=== PATIENT | female | born 1960 | race Caucasian/White ===

== ENCOUNTER 2020-08-02 07:36 | Outpatient (CLI) | payer OTHER, SELFPAY ==
--- NOTE | ~2020-08-02 | US_ITS ---
EXAMINATION: US right upper quadrant DATE: 08/02/2020 08:27 INDICATION: Right upper quadrant pain, history of cholelithiasis TECHNIQUE: Multiple grayscale and Doppler ultrasound images of the abdomen were obtained. COMPARISON: 08/08/2017 FINDINGS: The head and body of the pancreas are normal. The pancreatic tail is obscured by bowel gas. The liver is normal with normal echogenicity and echotexture. No surface nodularity. Normal hepatope andria flow in the main portal vein. Stones are present in the nondistended gallbladder. There is no gal lbladder wall thickening or pericholecystic fluid. The normal common bile duct measures 6 mm. There w as no sonographic Cohen sign. IMPRESSION: 1. Cholelithiasis without additional findings of cholecystitis. Reviewed, dictated and finalized at location A. ERTING OPERATOR
== END 2020-08-02 07:37 | disposition home or self-care (01) ==
PROVIDERS: PCP Physician Assistant; Visit Provider Physician Assistant
DX: K80.20 Calculus of gallbladder without cholecystitis without obstruction (principal)
CPT/HCPCS: 76705

== ENCOUNTER 2020-08-08 00:14 | Outpatient (CLI) | payer OTHER, SELFPAY ==
[2020-08-08 19:47] LABS: SARS-CoV-2 RNA PCR Negative
== END 2020-08-08 00:15 | disposition home or self-care (01) ==
LOC: ANHCOVIDDT 00:15
PROVIDERS: PCP Physician Assistant; Visit Provider Surgery
DX: Z01.818 Encounter for other preprocedural examination (principal); Z20.828 Contact with and (suspected) exposure to other viral communicable diseases
CPT/HCPCS: 87635; C9803; U0003

== ENCOUNTER 2020-08-08 09:24 | Outpatient (CLI) | payer OTHER, SELFPAY ==
--- NOTE | 2020-08-08 09:26 | ECG_ITS ---
Measurements Intervals [place] Rate: 72 P: 23 IA: 196 QRS: 15 QRSD: 97 T: 41 QT: 368 QTc: 403 Interpretive Statements SINUS RHYTHM BORDERLINE R WAVE PROGRESSION, ANTERIOR LEADS BASELINE ARTIFACT- I, II, AVR, AVL BORDERLINE ECG Electronically Signed On 08-08-2020 10:12:05 [employer] NUTRITION TERRITORY MANAGER by Yosef Yarbrough D.O.
[2020-08-08 09:58] LABS: Alanine Aminotransferase 167 U/L (4-35); Albumin Level 4.4 g/dL (3.5-5.1); Alkaline Phosphatase 200 U/L (38-126); Amylase 89 U/L (30-110); Aspartate Amino Transferase 39 U/L (14-36); Bilirubin,Total 0.7 mg/dL (0.2-1.3); Lipase 71 U/L (23-300)
== END 2020-08-08 09:25 | disposition home or self-care (01) ==
LOC: ANHSURGERY 09:26
PROVIDERS: PCP Physician Assistant; Visit Provider Surgery
DX: K80.20 Calculus of gallbladder without cholecystitis without obstruction (principal); Z01.818 Encounter for other preprocedural examination; R94.31 Abnormal electrocardiogram [ECG] [EKG]
CPT/HCPCS: 36415; 80076; 82150; 83690; 86850; 86900; 86901; 93005

== ENCOUNTER 2020-08-11 01:29 | Day surgery (SDC) | payer OTHER, SELFPAY ==
[2020-08-03 14:39] VITALS: BMI 35.4
[2020-08-11] VITALS (8 sets, daily range): BP systolic 104–133; BP diastolic 58–83; PULSE 53–79; RESP 10–20; TEMP 36.2–36.6; O2SAT 98–100
--- NOTE | ~2020-08-11 | XR_ITS ---
EXAMINATION: XR cholangiogram surg 1st inj DATE: 08/11/2020 08:43 INDICATION: Cholelithiasis. TECHNIQUE: 201 fluoroscopic images of the right upper quadrant were obtained during intraoperative ch olangiography performed by the surgeon. I was not present in the operating room. Fluoroscopy exposure time was 31 seconds. COMPARISON: Abdomen ultrasound 08/18 FINDINGS: There is a catheter in the cystic duct. The common duct is dilated. Contrast passes to the duodenum. No choledocholithiasis. IMPRESSION: 1. No choledocholithiasis. Reviewed, dictated and finalized at location B. TRUCK TECHNICIAN IMPRESSION: 1. No choledocholithiasis.
--- NOTE | 2020-08-11 06:48 | WPDHPUPDATE1 ---
History and Physical Update Update Date/Time: 08/11/20 06:48 History and Physical has been reviewed, including an updated exam of the patient. There are NO changes in the patient's condition. Risks, benefits, and alternatives have been discussed and questions answered. Patient agrees to proceed with procedure.
--- NOTE | 2020-08-11 06:48 | WPDANESEPPF ---
Anes - Initial Pre Proc Eval Procedure: Operation Date: 08/11/20 07:30 Proposed Procedures p Laparoscopic Cholecystectomy with Intraoperative Cholangiogram - Peterson Gates MD Date/Time: 08/11/20 06:48 Surgeon: Peterson Gates MD Pre Op Diagnosis: Chronic Cholecystitis With Stones Patient Data Age: 60 Gender: F Height: 5 ft 9.5 in Weight: 110.22 kg Allergies Allergy/AdvReac Type Severity Reaction Status Date / Time Tetanus Vaccines and Toxoid Allergy Unknown Swelling Verified 08/03/20 14:39 ibuprofen AdvReac Unknown Other Verified 08/03/20 14:39 Home Medications Medication Instructions Recorded Confirmed Type pregabalin 75 mg capsule 75 mg PO BID #180 cap 05/12/20 08/03/20 Rx magnesium 250 mg tablet 250 mg PO BID 06/23/20 08/03/20 History melatonin 5 mg tablet 5 mg PO HS tablet 06/23/20 08/03/20 History riboflavin (vitamin B2) 100 mg 200 mg PO BID 06/23/20 08/03/20 History tablet ascorbic acid-vitamin E-biotin 1 tablet PO DAILY 08/03/20 08/03/20 History [Hair, Skin, Nails with Biotin] ondansetron HCl 4 - 8 mg PO Q8H PRN 08/03/20 08/03/20 History tramadol 50 mg PO BID 08/03/20 08/03/20 History vit C-E-zinc hh-gfjn-ayn-zeax 1 cap PO BID 08/03/20 08/03/20 History [ICaps AREDS2] Patient hx anesthesia problems: none Family hx anesthesia problems: none PMFSH Past Medical History Medical History Arthritis Asthma Bruises easily Hx gestational diabetes Hypertension SOB (shortness of breath) Surgical History Surgical History H/O dilation and curettage History of appendectomy History of partial hysterectomy Hx of total cystectomy Family History Family History Mother Family history of thyroid disease Diabetes mellitus Family history of osteoporosis Family history of cardiovascular disease Sibling Family history of development disorder Patient's sister is in good health Patient's brother is in good health Father Cancer Social History Social History Smoking packs per day: 1 Smoking cigarettes per day: 20.0 Years smoked: 16 Smoking pack-years: 16.00 Smoking status: Former smoker Tobacco type: cigarettes Second hand tobacco smoke exposure: No Smoking end date: 03/29/85 Additional smoking assessment comments: QUIT AGE 26 Alcohol intake: never Substance use: unknown Gender identity (if verbalized by the patient): Female Spiritual care concerns: No Anes - Eval Final PreProcedure Day of Procedure 08/11/20 06:48 Patient weight: obese Heart: regular rate and rhythm Lungs: decreased breath sounds Airway: Mallampati scale class II Neurological: alert and oriented Last oral intake: >/= 8 hours ASA classification: III Emergent: no Anesthetic plan: proceed Anesthesia type and monitoring: general ETT and standard monitoring Informed Consent: The patient's anesthetic plan and its attendant risks and benefits were discussed with the patient/family/POA. Questions were solicited and answers provided to the satisfaction of the patient/family/POA.
[2020-08-11] MEDS: LACTATED RINGERS 1,000 ML 30 ML IV CONT ×2 (07:09→09:13)
[2020-08-11] MEDS: ACETAMINOPHEN 500 MG TABLET 1000 MG PO (07:09)
[2020-08-11] MEDS: KETOROLAC 15 MG/ML VIAL (*BKC) IV PUSH (07:09)
--- NOTE | 2020-08-11 07:23 | PM.PROC ---
Procedure Note - Detailed Date of procedure: 08/11/20 Pre-op diagnosis: Chronic Cholecystitis With Stones Chronic cholecystitis, cholelithiasis; abnormal LFTs Post-op diagnosis: same Procedure performed: Laparoscopic cholecystectomy with intraoperative cholangiogram. Description of procedure: The patient was taken to surgery and induced into general anesthesia. The abdomen was prepped and draped. Trocars were placed in the usual fashion using 0.5% Marcaine with epinephrine and applied Medical optical trocars. A 5 millimeter camera was used. The gallbladder was decompressed with a laparoscopic aspirator. The cholecystotomy was closed with a Vicryl endo-loop. The gallbladder was full of gallstones and there was very little bile within it. The gallbladder was then retracted anterosuperiorly. We exposed the cholecystohepatic triangle and dissected out the cystic duct and cystic artery. There was a lot of inflammation in the cholecysto hepatic triangle. The cystic duct was dilated. The gallbladder was dissected off the liver at its lower 3rd. Critical view was achieved. The cystic artery was securely clipped and divided. Cystic duct was dissected through most of its length. The cystic duct was clipped at the distal gallbladder. A small incision was made in the upper cystic duct with cystic duct scissors. On checking the more distal cystic duct, there was evidence of a stone not far from its junction with the common bile duct. I tried to milk the stone retrograde but was unable to do so. I then made a 2nd cystic duct incision right at the upper aspect of the stone. I was then able to extricate the scope dome from the cystic duct. Through this opening the cholangiogram catheter was passed into the cystic duct. We then brought the C-arm fluoroscopy into the field. Intraoperative cholangiograms were done with C-arm fluoroscopy. This showed a normal cholangiogram with no evidence of common bile duct filling defects. There was prompt duodenal filling and no evidence of common bile duct injury. The cholangiogram catheter was removed from the cystic duct. The cystic duct was then ligated with a Vicryl endo-loop. The gallbladder was then dissected free of its peritoneal attachments to the liver. There was quite a bit of inflammation and this was a slow process. The gallbladder was partially intrahepatic and its upper 3rd. One additional entry into the gallbladder was made in this upper 3rd of the gallbladder but minimal leakage of bile occurred. Eventually the gallbladder was freed completely from the liver. Once freed, it was placed in an Endo-Catch bag and retrieved through the 10 11 epigastric trocar. The epigastric trocar site had to be enlarged both bluntly and sharply to accommodate the inflamed gallbladder full of stones. Once the gallbladder was removed, the epigastric trocar was then replaced. A towel clip was used to occlude the skin around the epigastric trocar so that we could reinsufflated. We reviewed the right upper quadrant and gallbladder fossa. It was irrigated and suctioned. Cautery was used for hemostasis. All looked good with no evidence of bleeding or bile leakage. We then evacuated CO2 and removed the trocar sleeves. The fascia at the epigastric trocar site was closed with [id number] mattress sutures of 0 Vicryl. The subcutaneous was closed with interrupted 3 0 Vicryl. All skin wounds were closed with subcuticular 4 O Monocryl skin suture. The wounds were dressed with Exofin surgical adhesive. The patient transferred to recovery in good condition. Sponge and needle counts were correct x2. Anesthesia: GETA and local (0.5% Marcaine with epinephrine) Surgeon: Peterson Gates MD Tone Regulator: Mary Jensen OVERLOCK ELASTIC ATTACHER OVERLOCK ELASTIC ATTACHER Estimated blood loss (mL): 10 Drains: No Packing: No Pathology: yes (Gallbladder) Complications: None Condition: stable Disposition: PACU Findings: Severe chronic inflammation was noted. The ga
[2020-08-11] MEDS: ceFAZolin 2 GM/D5W 50 ML 2 GM/50 ML BAG IVPB (07:26)
[2020-08-11] MEDS: ONDANSETRON INJ 4 MG/2 ML VIAL IV PUSH (09:21)
[2020-08-11] MEDS: oxyCODONE HCL (*CRX) 5 MG TAB IR PO (10:10)
== END 2020-08-11 10:53 | disposition home or self-care (01) ==
PROVIDERS: PCP Physician Assistant; Visit Provider Surgery
PROC: 0FT44ZZ Resection of Gallbladder, Percutaneous Endoscopic Approach (ICD-10-PCS; CPT 47562; principal; 2020-08-11 07:30)
DX: K80.10 Calculus of gallbladder with chronic cholecystitis without obstruction (principal); Z87.891 Personal history of nicotine dependence; E66.9 Obesity, unspecified; Z68.34 Body mass index [BMI] 34.0-34.9, adult
CPT/HCPCS: 47563; 74300; 88304; A9270; C1713; J0330; J0690; J1100; J1885; J2250; J2405; J2704; J3010; J7120; Q9966

== ENCOUNTER 2020-08-21 07:53 | Outpatient (CLI) | payer OTHER, SELFPAY ==
--- NOTE | ~2020-08-21 | MM_ITS ---
EXAMINATION: MM screening ketan BI w naveed HISTORY: Screening mammogram TECHNIQUE: Craniocaudal and mediolateral oblique 3-D tomosynthesis images were obtained and synthetic 2-D images were generated. CAD analysis was submitted and interpreted. COMPARISON: No prior mammogram is available for comparison at this institution. BREAST PARENCHYMAL COMPOSITION: There are scattered areas of fibroglandular density. FINDINGS: There is no evidence of suspicious mass, calcification, or architectural distortion to sugg est malignancy in either breast. There has been no suspicious interval change. IMPRESSION: 1. No mammographic evidence of malignancy. 2. Recommend routine screening mammography in one year. BI-RADS Category 1: Negative Reviewed, dictated and finalized at location A. CE SUPPORT CLERK
== END 2020-08-21 07:54 | disposition home or self-care (01) ==
LOC: ANHIMG 07:55
PROVIDERS: PCP Physician Assistant; Visit Provider Physician Assistant
DX: Z12.39 Encounter for other screening for malignant neoplasm of breast (principal)
CPT/HCPCS: 77063; 77067

== ENCOUNTER 2024-12-10 09:33 | Emergency (ER) | payer OTHER, SELFPAY ==
[2024-12-10 09:39] VITALS: PULSE 81; RESP 16; TEMP 36.4; O2SAT 97
--- NOTE | 2024-12-10 09:46 | ED.GENADULT ---
HPI - General Adult General Stated complaint: High Blood pressure Time Seen by Provider: 12/10/24 10:09 Mode of arrival: ambulatory Limitations: no limitations History of Present Illness HPI narrative: 64-year-old female presents with concern for high blood pressure. Reports she has had a headache for 2 weeks. She took her blood pressure at home and it was 197/103 last night and this morning was 223/107. She used an automatic at home blood pressure cuff. She reports she recently started on a new antidepressant. She denies weakness in any extremity, thunderclap headache, difficulty speaking or swelling.. complaint: High blood pressure Related Data Home Medications ?Medication ?Instructions ?Recorded ?Confirmed ?Last Taken ?Type magnesium 250 mg tablet 250 mg PO BID 06/23/20 11/01/20 Unknown History melatonin 5 mg tablet 5 mg PO HS 06/23/20 11/01/20 Unknown History riboflavin (vitamin B2) 100 mg 200 mg PO BID 06/23/20 11/01/20 Unknown History tablet ascorbic acid 7.5 mg-vit E 7.5 1 tablet PO DAILY 08/03/20 08/22/20 Unknown History unit-biotin 1,250 mcg chewable tablet (Hair,Skin,Nails with Biotin) vit C 250 mg-vit E 200 unit-zinc 1 cap PO BID 08/03/20 11/01/20 Unknown History ox 12.5 ce-qozmqk-nojpqp-zeax capsule (ICaps AREDS2) saw palmetto 160 mg capsule 160 mg PO BID 10/31/20 11/01/20 Unknown History vilazodone 10 mg tablet mg 12/10/24 Unknown History Allergies Allergy/AdvReac Type Severity Reaction Status Date / Time Tetanus Vaccines and Toxoid Allergy Unknown Swelling Verified 12/10/24 10:08 ibuprofen AdvReac Unknown Other Verified 12/10/24 10:08 Review of Systems Review of Systems: CONSTITUTIONAL: Denies malaise, chills, sweats, or fever. EYES: Denies visual changes CARDIOVASCULAR: Denies chest pain, palpitations, or edema. RESPIRATORY: Denies cough or dyspnea. NEUROLOGIC: Denies numbness, weakness. Reports headache. All systems reviewed & are unremarkable except as noted in HPI and below PMFSH Past Medical History Medical History Arthritis Asthma Bruises easily Hx gestational diabetes Hypertension SOB (shortness of breath) Surgical History Surgical History H/O dilation and curettage History of appendectomy History of partial hysterectomy Hx laparoscopic cholecystectomy Hx of total cystectomy Family History Family History Mother Family history of thyroid disease Diabetes mellitus Family history of osteoporosis Family history of cardiovascular disease Sibling Family history of development disorder Patient's sister is in good health Patient's brother is in good health Father Cancer Social History Social History Smoking packs per day: 1 Smoking cigarettes per day: 20.0 Years smoked: 16 Smoking pack-years: 16.00 Smoking status: Former smoker Tobacco type: cigarettes Second hand tobacco smoke exposure: No Smoking end date: 03/29/85 Additional smoking assessment comments: QUIT AGE 26 Alcohol intake: never Substance use: unknown Living arrangements: with family Occupation/Education: retired Gender identity (if verbalized by the patient): Female Spiritual care concerns: No Comments At time of signature, agree with nursing past medical, surgical, social and family history. There is no relevant family history pertinent to the presenting complaint Exam Narrative: GENERAL: Well-appearing, well-nourished, and in no acute distress. HEAD: Normocephalic, atraumatic. EYES: PERRLA, sclera clear, and EOMI. No nystagmus. ENT: Nares clear, turbinates pink, no rhinorrhea or epistaxis. Mucous membranes moist. TM pearly bhagat with sharp light reflex bilaterally; no tragal tenderness. Oropharynx without erythema or lesions. Tonsils not enlarged and without exudate. NECK: Supple. CHEST: No respiratory distress. Clear to auscultation. No bony deformities, no asymmetry. Speaks in full sentences. HEART: Regular rate and rhythm. No murmur heard. Normal peripheral pulses. EXTREMITIES: Normal range of motion. No edema. Normal strength and sensation. SKIN: Warm, dry, no visible rash. NEURO: Alert and oriented x3. No focal deficits. Cranial nerves II through XII grossly intact PSYCH: Normal mood and affect Course Course Emergency Course: I discussed limitations of evaluation at the urgent care. Offered transfer to emergency room for further evaluation which patient refused. She reports she will follow-up with her primary doctor. Patient is aware of diagnosis, understands and agrees to treatment plan. Anticipatory guidance given. Patient agrees to follow-up as directed and is aware of reasons to seek care at the emergency department. Portions of this record may have been created with voice recognition software Level of Care: Express Care Visit Vital Signs Vital signs: Vital Signs Temperature 97.6 F 12/10/24 09:39 Pulse Rate 81 12/10/24 09:39 Respiratory Rate 16 12/10/24 09:39 Pulse Oximetry 97 12/10/24 09:39 Oxygen Delivery Room Air 12/10/24 09:39 Temperature 97.6 F 12/10/24 09:39 Pulse Rate 81 12/10/24 09:39 Respiratory Rate 16 12/10/24 09:39 Pulse Oximetry 97 12/10/24 09:39 Oxygen Delivery Room Air 12/10/24 09:39 Reviewed. Medical Decision Making MDM Narrative Medical decision making narrative: The patient was evaluated by myself in the emergency department. History is obtained from patient who is an independent historian and physical exam was performed.? Available medical records were reviewed at this time. ? Exam findings show no acute concerns or changes; patient is non-toxic appearing and is in no distress. Patient is appropriate for outpatient treatment and follow-up. ? I have evaluated and discussed social determinants of health with the patient that could potentially impact subsequent diagnosis and treatment plans. ? Differential diagnosis and treatment plan were discussed with the patient. Patient agrees with discussion and after shared medical decision making agrees with plan of care. All questions were answered to the patient's satisfaction. Vital Signs Vital Signs: Vital Signs Temperature 97.6 F 12/10/24 09:39 Pulse Rate 81 12/10/24 09:39 Respiratory Rate 16 12/10/24 09:39 Pulse Oximetry 97 12/10/24 09:39 Oxygen Delivery Room Air 12/10/24 09:39 Temperature 97.6 F 12/10/24 09:39 Pulse Rate 81 12/10/24 09:39 Respiratory Rate 16 12/10/24 09:39 Pulse Oximetry 97 12/10/24 09:39 Oxygen Delivery Room Air 12/10/24 09:39 Critical Care Time Critical Care Time Critical Care Time: No Discharge Plan Discharge Clinical Impression: Hypertension Qualifiers: Hypertension type: essential hypertension Qualified Code(s): I10 - Essential (primary) hypertension Patient Disposition: Home, Self-Care Condition: Stable Instructions: Hypertension (ED) Additional Instructions: Your blood pressure today at urgent care was 160/102 & 162/104 Pulse 81 Respirations 16 Temperature 97.6? Oxygen saturation 97 Your physical exam today does not show any urgent concerns. Please follow-up with your primary care doctor - call for appointment. If you have any worsening of symptoms or any other urgent concerns please go to the ER. Please continue taking your home medications as usual. Please read and follow information included in discharge instructions. Patient Language: Greenlandic Prescriptions: No Action riboflavin (vitamin B2) 100 mg tablet 200 mg PO BID magnesium 250 mg tablet 250 mg PO BID melatonin 5 mg tablet 5 mg PO HS saw palmetto 160 mg capsule 160 mg PO BID Rx Instructions: give with meal/snack Hair, Skin, Nails with Biotin 7.5-7.5-1,250 mg-unit-mcg Tablet,Chewable 1 tablet PO DAILY ICaps AREDS2 250 mg-200 unit -12.5 mg-1 mg Capsule 1 cap PO BID tramadol 50 mg tablet 50 mg PO BID PRN (Reason: pain) Qty: 90 0RF Rx Instructions: must last 90 days pregabalin 75 mg capsule 75 mg PO BID Qty: 180 0RF Follow-up/Referrals: Harms,Hao Becerril M.D. [Primary Care Provider] - Stand Alone Forms: Work/School Release IP Time of Disposition: 10:27
[2024-12-10 10:07] VITALS: BP 160/102
--- OUTSIDE RECORDS SUMMARY | 2024-12-10 10:07 | XMS_ITS | CONTINUITY OF CARE DOCUMENT ---
Author Name ana perez Address Unknown Organization [facility] Address [address] [address] [facility] [address] [facility] [address] [place] [address] Phone [phone] Care Team Providers Care Director Of Curriculum And Instruction Name Role Phone ana perez Unavailable Unavailable
--- OUTSIDE RECORDS SUMMARY | 2024-12-10 10:08 | XMS_ITS | Encounter Summary ---
Author Organization [facility] Healthcare Address [address] [place] [id number] Care Team Providers Care Hot Car Charger Name Role Phone Hao Schneider MD Primary Care Provider [phone] Reason for Visit * Reason Onset Date Comments Hypertension 12/10/2024 Encounter Details Date Type Department Care Team (Late st Contact Info) Description 12/10/2024 Nurse Triage [facility] [address] [place] [address] Meeta Romeo RN Social History Tobacco Use Types Packs/Day Years Used Date Smoking Tobacco: Former Cigarettes 0.3 15 0 1970 - 1985 Smokeless Tobacco: Never Alcohol Use Standard Drinks/Week Comments No 0 (1 standard drink = 0.6 oz pur e alcohol) PHQ-2 Answer Date Recorded PHQ-2 Total Score (If total score is 3 or more points, staff should administer the PHQ-9) 6 01/27/2024 PHQ-9 Answer Date Recorded PHQ-9 Total Score 21 01/27/2024 Personal Safety Answer Date Recorded Have you ever been in or are you currently in a harmful physical or emotional relationship or is someone making you feel afraid or unsafe? 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 Noticing higher BP over the last 3 weeks, was getting readings atpsychiatrist. Yesterday on forearm 200 systolic. Has been having headaches for last few weeks. Lastnight on home machine (arm cuff) BP 197/103. Denies chest pain, SOB, vision changes, severe headaches. Now on phone, BP at home 204/123 HR 74. Pt is not on BP medications. RN gave care advice and advised UC now as no open OV. To call if worsens or needs f/u. Reason for Disposition Systolic BP >= 200 OR Diastolic >= 120 and having NO cardiac or neurologic symptoms Protocols used: Blood Pressure - [id number] * Telephone Encounter - Sandy Mantilla RN - 12/10/2024 8:59 AM CDT Regarding: elevated blood pressure (197/103) ----- Message from Nancy Chen sent at 12/10/2024 8:59 AM CDT ----- Symptom Based Call Chief Complaint(s): elevated blood pressure (197/103) Duration: this morning What type of symptom(s) is the patient experiencing? Red Flag. Is the patient concerned they are experiencing a medical emergency requiring an ambulance? No Additional Comments: pt calling stating that she has elevated blood pressure this morning. Her homemachine read 197/103. She states that she has gained a lot of weight recently. She states that she is having headaches. She states that she is having some head fogginess that has been going on. No facial numbness or drooping. She has been feeling fatigued and sluggish. Does message need to be routed? Yes-Action Needed documented in this encounter Plan of Treatment Not on file documented as of this encounter Visit Diagnoses Not on filedocumented in this encounter Care Teams Hot Car Charger Relationship Specialty Start Date End [place] [id number] PCP - General Family Medicine 11/19/21 documented as of this encounter
--- OUTSIDE RECORDS SUMMARY | 2024-12-10 10:08 | XMS_ITS | Referral Summary ---
Author Organization [facility] [place] [address] Address [address] [place] [address] Phone Care Team Providers Care Meat Cutting Block Repairer Name Role Phone Hao Schneider MD Primary Care Provider [phone] Encounters Date Type Department Care Team Description 12/10/2024 Nurse Triage [facility] [address] [address] Meeta Romeo, JUNIOR 12/02/2024 Telephone [facility] [address] [address] Yoel Tomlinson, WELDER GAS AUTOMATIC 10/12/2024 Telephone [facility] [address] [address] Hao Schneider MD Medical Question/Miscellaneous from Last 3 Months Allergies Active Allergy Reactions Criticality Noted Date Comments Milk Unknown 12/12/2021 Medications magnesium oxide (MAG-OX) 415 mg (250 mg elemental) tablet 5 Active melatonin 5 mg tablet 0 Active riboflavin (Vitamin B-2) 100 mg tablet 5 Active vit C,M-Uo-msspa-l utein-zeaxan (PreserVision AREDS-2) 250-90-40-1 mg capsule 8 Active polyethylene glycol (MIRALAX) 17 gram packetIndicati ons:constipati on Take 1 packet (17 g total) by mouth daily Active benzonatate (TESSALON) 100 mg capsuleIndicat ions:Cough Take 1 capsule (100 mg total) by mouth 3 (three) times a day as needed for cough 42 capsule 3 Active valACYclovir (VALTREX) 1 gram tablet Take 2 tabs (2000 mg) 2 times a days for 1 day. 4 tablet 5 4 Active albuterol HFA (PROVENTIL HFA,VENTOLIN HFA,PROAIR HFA) 90 mcg/actuation inhaler Inhale 2 puffs every 6 (six) hours as needed for wheezing 3 each 4 4 025 Active guaiFENesin-co deine (GUAITUSS AC) liquid 100-10 mg/5 mL Take 5-10 mL by mouth every 4 (four) hours as needed for cough 120 mL 4 Active vitamin B complex capsule Take 1 capsule by mouth daily Active ascorbic acid (vitamin C) 1,000 mg tablet Take 1 tablet (1,000 mg total) by mouth daily Active sulfamethoxazo le-trimethopri m (BACTRIM DS) 800-160 mg per tablet 4 Active pregabalin (LYRICA) 50 mg capsule TAKE 1 CAPSULE BY MOUTH 2 TIMES A DAY. 180 capsule 5 Active pregabalin (LYRICA) 50 mg capsule Take 1 capsule (50 mg total) by mouth 2 (two) times a day 180 capsule 4 025 Discontinued Active Problems Problem Noted Date Diagnosed Date Annual physical exam 01/27/2024 Assessment & Plan (01/27/2024 11:44 AM CDT): In regard to health maintenance, Colonoscopy declines colon cancer screen. Aware of risks. WWE hyst Shingrix vaccine declines ASCVD risk: 3.7% Eat a healthy diet: focus on lean meats and proteins, more fruits, vegetables and whole grains and low in sugars and fats. Limit red meat and avoid processed meat. Maintain a healthy weight; avoid being overweight. Aim for a normal body mass index (BMI) of 18.5-24.9. Help learning to eat healthier, we can set up appointment with no bake molder/television cable installer. Have an active lifestyle, strive for 30 minutes of moderate exercise 5 times a week and strength or resistance training at least twice a week. Use broad-spectrum (UVA+UVB) sunscreen with SPF 30 or greater, is water resistant, limit time spent in the sun (10 am-4pm), wear hat, wear UV protective clothing, wear sunglasses. Never use a tanning bed. Skin that was irradiated may be more sensitive over your lifetime. Do not smoke or chew tobacco; participate in a smoking cessation program. Limit alcohol intake, 1 drink per day for a woman and 2 drinks per day for a man. Pneumonia of left lower lobe due to infectious o rganism 12/10/2023 Assessment & Plan (12/31/2023 2:31 PM CDT): Resolved on x-ray today. Discussed measures to prevent recurrence especially in light of her current influenza. She is agreeable and states understanding. Assessment & Plan (12/10/2023 10:57 AM CDT): Symptomatically improved. Completed azithromycin today. Will repeat chest x-ray in 1 month to ensure resolution. Red flags reviewed. Recurrent oral herpes simplex 12/10/2023 Assessment & Plan (12/31/2023 2:32 PM CDT): Valtrex E scribed. Will monitor response. Assessment & Plan (12/10/2023 10:58 AM CDT): Improving topical OTC. Declines p.o. Valtrex. Will continue to monitor. Class 3 severe obesity due t o excess calories with serious comorbidity and body mass index (BMI) of 45.0 to 49.9 in adult 12/10/2023 Assessment & Plan (12/10/2023 10:58 AM CDT): Handout provided for chip program. Reviewed diet recommendations. Also given name of local weight loss clinic. Dog bite 01/13/2023 Assessment & Plan (01/13/2023 1:37 PM CDT): Prescribed antibiotics today and instructed to monitor closely for worsening infection. Patient to notify office if she develops increased swelling, redness, pain or fevers. Apply thin layer of bactroban ointment three times daily. Anxiety and depression 01/13/2023 Assessment & Plan (01/27/2024 10:53 AM CDT): Unchanged. Declines medication or counseling. Denies SI/HI. Will continue with her michael. Assessment & Plan (01/13/2023 1:39 PM CDT): Reviewed pharmacologic treatment options for management of anxiety and depression. Declines treatment with medications. Encouraged patient to engage with counseling. Recommend healthy eating and regular exercise. Seek immediate medical attention if experiencing SI/HI. Will continue to monitor. Abnormal mammogram of left breast 01/13/2023 Assessment & Plan (01/27/2024 10:55 AM CDT): Encouraged to schedule follow up mammogram. Declines. States she will wait for one year neli. Aware of risks. Assessment & Plan (01/13/2023 1:40 PM CDT): Recommendation to have short interval follow up diagnostic mammogram last month, declines. Patient is agreeable to repeat mammogram in April of this year. S/P total hysterectomy and bilateral salpingo-oo phorectomy 03/13/2017 Endometrial hyperplasia without atypia, complex 11/25/2016 Acute appendicitis with localized peritonitis Biliary colic 09/15/2016 Cyst of right ovary 09/15/2016 Overview (08/19/2023): Last Assessment & Plan: Needs outpatient follow up with Gynecology Her pain is in the epigastric region It is unlikely that ovarian cyst is contributing to the pain Epigastric pain 09/15/2016 Overview (08/19/2023): Last Assessment & Plan: Secondary biliary colic Pain meds as needed Leukocytosis 09/15/2016 Overview (08/19/2023): Probably Stress related Monitor WBC Venous stasis dermatitis 06/17/2016 Pruritus of skin 03/04/2016 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 Will continue to monitor. Assessment & Plan (12/10/2023 10:56 AM CDT): Above goal. Admits she did eat Belarusian takeout most of the day yesterday as her had brought at home. Reviewed low-sodium recommendations. Will continue to monitor. Assessment & Plan (01/13/2023 1:37 PM CDT): Diet controlled, will continue to monitor. Impaired glucose tolerance 02/12/2014 Overview (01/01/2017): Prediabetes Hyperesthesia 02/12/2014 Overview (01/01/2017): Hyperesthesia Back disorder 02/12/2014 Overview (01/01/2017): BACK DISORDER NOS Morbid obesity 02/12/2014 Overview (01/01/2017): MORBID OBESITY Bursitis of shoulder 02/12/2014 Overview (01/01/2017): Shoulder bursitis Sciatica 02/12/2014 Overview (01/01/2017): Sciatica Resolved Problems Problem Noted Date Diagnosed Date Resolved Date Influenza A 12/31/2023 01/27/2024 Assessment & Plan (12/31/2023 2:32 PM CDT): She is out of the window for antiviral. Reviewed OTC measures. Will also send in prescription cough syrup. Discussed the sedative affects so take with caution. We reviewed red flags which would warrant presentation to ED. She is agreeable with plan states understanding. Lipid screening 12/10/2023 01/27/2024 Assessment & Plan (12/10/2023 10:58 AM CDT): Lipid panel ordered prior to next appointment. Reviewed lifestyle recommendations. Hospital discharge follow-up 12/10/2023 01/27/2024 Assessment & Plan (12/10/2023 10:58 AM CDT): I, Yoel Tomlinson NP have personally reviewed pertinent inpatient and/or ED records, including discharge medications and Clindesk if applicable. This patient's discharge medication list has been reviewed and reconciled with her outpatient medication list and has also been reviewed with patient and/or caregiver. I have noted any changes. Adiposity 02/12/2014 12/12/2021 Overview (01/01/2017): Obesity Immunizations Immunization Administration Dates Next Due Influenza, Unspecified 12/29/2023(Deferr ed: Patient Refused),12/10/2023(Deferred: Patient Refused),07/15/2023(Deferred: Patient Refused),06/29/2023(Deferred: Patient Refused),07/12/2022(Deferred: Patient Refused),06/29/2022(Deferred: Patient Refused),06/29/2022(Deferred: Patient Refused),05/30/2022(Deferred: Patient Refused),09/29/2021(Deferred: Patient Refused),06/29/2021,09/29/2020(Deferred: Patient Refused) Tdap 01/13/2023 Social History Tobacco Use Types Packs/Day Years Used Date Smoking Tobacco: Former Cigarettes 0.3 15 0 1970 - 1985 Smokeless Tobacco: Never Tobacco Cessation:Counseling Given: Not Answered Alcohol Use Standard Drinks/Week Comments No 0 [...] on file 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 Gender Identity Not on file Sexual Orientation Not on file Last Filed Vital Signs Vital Sign Reading Time Taken Comments Blood Pressure 148/80 03/23/2024 3:52 PM CDT Pulse 76 03/23/2024 3:52 PM CDT Temperature 36.4 C (97.6 F) 03/23/2024 3:52 PM CDT Respiratory Rate 18 03/23/2024 3:52 PM CDT Oxygen Saturation 98% 03/23/2024 3:52 PM CDT Inhaled Oxygen Concentration - - Weight 149.7 kg (330 lb) 03/23/2024 3:52 PM CDT Height 175.3 cm (5' 9 ) 03/23/2024 3:52 PM CDT Body Mass Index 48.73 03/23/2024 3:52 PM CDT Plan of Treatment Not on file Procedures Procedure Name Priority Date/Time Associated Diagnosis Comments DIAGNOSTIC MAMMOGRAM BILATERAL W SUKUMAR Schedule Routine, Read Routine (OP Routine) 05/30/2023 12:36 PM CDT Mass of left breast, unspecified quadrant Abnormal mammogram SERUM HEPATITIS C AB Routine 03/04/2016 12:11 PM CDT from Last 3 Months or Most Recently Relevant to Health Maintenance Results * Diagnostic Mammogram Bilateral W Sukumar (05/30/2023 12:36 PM CDT) Anatomical Region Laterality Modality Breast Bilateral Mammography 05/30/2023 1:51 PM CDT Impressions 05/30/2023 1:51 PM CDT 1. The probably benign asymmetry in the medial left breast, middle depth, has not significantly since April 2022. A possible correlate on ultrasound at the 9 o'clock position, 9 cm from the nipple is also largely stable. Continued follow-up with diagnostic mammogram and ultrasound of the left breast in 6 months is recommended. 2. No mammographic evidence of malignancy in the right breast. Recommend screening mammography of the right breast in one year. BI-RADS: 3 - Probably benign The patient has been notified of these findings and impression. Electronically signed by: Arie Garg M.D. Narrative 05/30/2023 1:51 PM CDT EXAMINATION: DIAGNOSTIC MAMMOGRAM BILATERAL W SUKUMAR, US BREAST LEFT LIMITED ORDERING HEALTHCARE PROVIDER: YOEL TOMLINSON HISTORY: 63-year-old female presents for follow-up of a probably benign finding in the left breast and annual right screening mammogram. COMPARISON: 05/24/2022, 03/14/2022, 08/21/2020 TECHNIQUE: CC and MLO views of the bilateral breasts were obtained with digital technique using breast tomosynthesis with C view. Computer aided detection was utilized. Limited ultrasound of the left breast was performed with grayscale and color Doppler. FINDINGS: BREAST DENSITY: There are scattered fibroglandular elements in the bilateral breasts. MAMMOGRAM FINDINGS: A subcentimeter asymmetry in the medial left breast, middle depth, on the CC view is largely similar in size and appearance to that seen on prior mammograms from March/April 2022. This measures approximately 8 mm on today's mammogram versus 7 mm previously by similar measurement technique. There are no suspicious microcalcifications or architectural distortion associated with this asymmetry. Based on tomosynthesis, this asymmetry localizes to approximately the 8-9 o'clock position, 10 cm from the nipple. There is no new suspicious finding in either breast on mammogram. ULTRASOUND FINDINGS: Targeted ultrasound of the left breast at the 9 o'clock position, 9 cm from the nipple demonstrates a 5 x 3 x 3 mm oval mass with mostly circumscribed margins and no evidence of internal blood flow on color Doppler. This mass does not appear significantly changed since April 2022, at which time it measured 4 x 2 x 3 mm. This equivocally corresponds with the described mammographic asymmetry. No other finding of concern is identified in this vicinity on today's ultrasound. Yoel Tomlinson WELDER GAS AUTOMATIC IMG MAMMO PROCEDURES Final Result * Serum Hepatitis C ab (03/04/2016 12:11 PM CDT) HCV ab Negative NEG HISTORICAL RESULTS Serum 03/04/2016 12:1 1 PM CDT Narrative HISTORICAL RESULTS - 03/05/2016 5:03 AM CDT Interpretive Data If confirmation is required, call Laboratory Customer Service to request sample to be sent to [facility] for Hepatitis C Virus (HCV) RNA Detection and Quantitation by Real-Time Reverse Senior Living Sales Counselor-PCR (RT-PCR). Current interpretive data was last revised on 2011 us Royal Kearney MD LAB BLOOD ORDERABLES Final Resul t HISTORICAL RESULTS from Last 3 Months or Most Recently Relevant to Health Maintenance Insurance [facility] Address: [address] [address] [place] [address] [facility]O Address: [address] [address] [place] [address] [facility]O Address: [address] [address] [facility] Address: [place] [phone] Care Teams Meat Cutting Block Repairer Relationship Specialty Start Date End [place] [address] PCP - General Family Medicine 11/19/21
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
--- OUTSIDE RECORDS SUMMARY | 2024-12-10 10:09 | XMS_ITS | CONTINUITY OF CARE DOCUMENT ---
Author Name ana perez Address Unknown Organization [facility] Address [address] [place] [address] Phone [phone] Care Team Providers Care Bed Laster Name Role Phone ana perez Unavailable Unavailable
== END 2024-12-10 10:33 | disposition home or self-care (01) ==
PROVIDERS: Emergency Provider Nurse Practitioner; PCP Family Medicine
DX: I10 Essential (primary) hypertension (principal); Z87.891 Personal history of nicotine dependence; J45.909 Unspecified asthma, uncomplicated; M19.90 Unspecified osteoarthritis, unspecified site
CPT/HCPCS: 99211; G0463